=== PATIENT | female | born 2000 | race African-American/Black ===

== ENCOUNTER 2022-12-09 21:33 | Emergency (ER) | payer OTHER ==
[2022-12-09 23:25] LABS: SARS-CoV-2 NAA Rapid Test Not Detected (NotDetected)
[2022-12-09] MEDS ORDERED: Ibuprofen 800 MG TAB ONE (23:37)
[2022-12-09] MEDS ORDERED: Acetaminophen 500 MG TAB ONE (23:37)
== END 2022-12-10 00:09 | disposition home or self-care (01) ==
LOC: ERS 21:33
DX: B34.9 Viral infection, unspecified (principal); Z20.822 Contact with and (suspected) exposure to COVID-19
CPT/HCPCS: 99283; U0002